=== PATIENT | female | born 2000 | race Hispanic/Latino ===

== ENCOUNTER 2024-05-08 12:47 | Emergency (ER) | payer OTHER ==
[~2024-05-08] VITALS: Ht 160 cm; Wt 49.0 kg
[2024-05-08 13:02] VITALS: BP 114/77
[2024-05-08 13:15] VITALS: BP 118/80
[2024-05-08] MEDS ORDERED: IBUPROFEN600 MG PO (13:27)
[2024-05-08 13:30] VITALS: BP 102/68
[2024-05-08 13:44] VITALS: BP 102/68
== END 2024-05-08 13:48 | disposition home or self-care (01) | DRG 563 ==
LOC: ED 12:47
DX: S92.355A Nondisplaced fracture of fifth metatarsal bone, left foot, initial encounter for closed fracture (principal); F17.290 Nicotine dependence, other tobacco product, uncomplicated; V00.131A Fall from skateboard, initial encounter; Y93.51 Activity, roller skating (inline) and skateboarding